=== PATIENT | male | born 1985 | race Caucasian/White ===

== ENCOUNTER 2020-12-06 10:34 | Emergency (ER) | payer MEDICAID, SELFPAY ==
[2020-12-06 10:44] VITALS: BP 133/80; PULSE 86; RESP 17; TEMP 36.9; O2SAT 98; BMI 35.6
--- NOTE | 2020-12-06 10:54 | HMH.EDUTC ---
[facility] [place] Clinical Impression: Abdominal pain Qualifiers: Abdominal location: unspecified location Qualified Code(s): R10.9 - Unspecified abdominal pain Disposition: Still a Patient Condition on Discharge: Good Referrals: Margarita Triplett [Primary Care Provider] - Time of Disposition: 11:09 Medical Decision Making - [place] Inquiry Pt receiving controlled substance: No [place] was queried for this patient: No Vital Signs: 12/06/20 10:44 Temperature 98.4 F Temperature Source Oral Pulse Rate [Right Brachial] 86 Respiratory Rate 17 Blood Pressure [Right Arm] 133/80 Blood Pressure Mean [Right Arm] 97 Blood Pressure Source [Right Arm] Automatic Cuff 02 Sat by Pulse Oximetry 98 Oxygen Delivery Method Room Air Medical Decision Narrative: Discussed with patient and patient was initially declining transfer to the Ed for further work up and evaluation, Spoke with patients PCP and she recommended transfer patient to the ED for CT and further evaluation, again spoke with patient and he is now agreeing for transfer to the ED spoke with staff and patient moved to the ED without complications room 10 [facility] [place] - General Stated complaint: vomiting, abd pain Time Seen by Provider: 12/06/20 10:54 Mode of Arrival: Family Vehicle Source of Information: Patient Limitations: No Limitations Description of Symptoms (Recalled from Triage Doc. by RN): Pt c/o pain in LUQ ABD with nausea and vomiting. HEENT Symptoms (Recalled from RN notes): No Resp Symptoms (Recalled from RN notes): No Skin Symptoms (Recalled from RN notes): No MS Symptoms (Recalled from RN notes): No Functional Status (Recalled from RN notes): na - History of Present Illness Provider Complaint: Patient states that about three days ago he started having pain in his left side of his abdomen States that then started having some vomiting and diarrhea States now the diarrhea has since stopped but still having left side abd pain and when the pain hits it makes him sick at his stomach States that pain is a 04/23 - Related Data Home Medications Medication Instructions Recorded Confirmed Ibuprofen [Ibuprofen 800mg 800 mg PO TIDP PRN 12/06/20 12/06/20 Tablet] Omeprazole [Omeprazole 40mg 40 mg PO DAILY 12/06/20 12/06/20 Capsule] Allergies Allergy/AdvReac Type Severity Reaction Status Date / Time No Known Allergies Allergy Verified 05/21/18 17:33 - Worker's Comp Is this a Worker's Comp case?: No H History - Hepatitis A Screen Drug use history?: No High risk sexual behaviors?: No History of sexually transmitted infection?: No Currently employed?: No Childcare worker?: No Do you have indoor plumbing?: Yes Do you have electricity?: Yes Attestation statement:: This patient has been screened for Hepatitis A risk factors. I have reviewed the patient's past medical history: Yes - Social History Smoking Status: Unknown if ever smoked Alcohol Intake: never ROS Obtained: Yes All systems reviewed & no additional complaints, Yes Systems reviewed as appropriate & no additional complaints - Gastrointestinal Gastrointestingal: Reports: system reviewed and no additional complaints, except as docu, abdominal pain, diarrhea, nausea, vomiting Comments: Reports left sided abdominal pain that started about 3 days ago then he had some vomiting and diarrhea but now diarrhea has stopped and he is still having left sided abdominal pain and vomiting Physical Exam - General General appearance: alert, in no apparent distress - Respiratory Respiratory exam: Present: normal lung sounds bilaterally. Absent: respiratory distress - Cardiovascular Cardiovascular exam: Present: regular rate, normal rhythm. Absent: JVD - Abdominal Exam Abdominal exam: Present: soft, tenderness (reports tenderness with palpation in left upper and left lower quad). Absent: distention Abdominal tenderness: Present: LUQ, LLQ, mild, moderate Comment: Report
--- NOTE | 2020-12-06 11:10 | PC.NURSE ---
report given to Lynda Eisenberg RN. pt transfered to ER per Nella Kothari APRN and pt's pcp.
[2020-12-06 11:12] VITALS: BP 147/86; PULSE 60; RESP 16; TEMP 36.6; O2SAT 96; BMI 36.0
--- NOTE | 2020-12-06 11:17 | CT_ITS ---
PROCEDURE: CT ABDOMEN PELVIS WO CON CLINICAL INDICATION: LUQ ABD PAIN Left upper quadrant pain and vomiting COMPARISON: No exams were available for comparison TECHNIQUE: Axial images obtained with sagittal and coronal reformats. All CT scans at the facility use one or more dose reduction, viz: automated exposure control, ma/kV adjustment per patient size (including targeted exams where dose is matched to indication, i.e. head), or iterative reconstruction technique. FINDINGS: LOWER THORAX: No acute finding ABDOMEN & PELVIS: Prior cholecystectomy. No focal liver lesion identified. There is mild gastric wall thickening. This is nonspecific and could be due to nondistention or gastritis. The spleen, adrenal glands, and pancreas have an unremarkable appearance. There is some bilateral renal excretion of contrast. No hydronephrosis. Renal calculi could be obscured due to the contrast. Unremarkable appendix. No intestinal obstruction or free air. There are few nondistended fluid-filled loops of small bowel in the lower abdomen. No pelvic mass or abnormal fluid collection. 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 IMPRESSION: Mild gastric wall thickening nonspecific but could be seen with gastritis. Nondistended fluid-filled loops of small bowel are noted and could be related to mild enteritis.. Dictated by: Jona De La Cruz MD 12/06/2020 12:55 Jona De La Cruz MD in [place] 12/06/2020 12:55
--- NOTE | 2020-12-06 11:20 | HMH.EDGENADL ---
ED Disposition Clinical Impression: Left sided abdominal pain Gastritis Qualifiers: Gastritis type: unspecified gastritis Chronicity: acute Gastritis bleeding: without bleeding Qualified Code(s): K29.00 - Acute gastritis without bleeding Disposition: Still a Patient Condition on Discharge: Fair Instructions: DI for Acute Abdominal Pain Additional Instructions: Do not take ibuprofen for 1 week. Continue taking Prilosec. Carafate as prescribed. Additional instructions for ABDOMINAL PAIN: See your physician as soon as possible for further evaluation. Return immediately if worsening abdominal pain, vomiting, shortness of breath, fever, vomiting of blood or abdominal distention. Prescriptions: Sucralfate [Carafate 1gm Tab] 1 gm PO ACHS #28 tab Transmission Status: Pending to [facility] Referrals: Margarita Triplett [Primary Care Provider] - - Critical Care Critical Care Time: No Attestation: On 12/06/20, the high probability of a clinically significant, sudden or life threatening deterioration of the following system(s) required my full and direct attention, intervention and personal management. The time I documented below is in addition to time spent performing reported procedures but includes the following listed in this critical care notation. Medical Decision Making - [place] Inquiry Pt receiving controlled substance: No Vital Signs: 12/06/20 10:44 12/06/20 11:12 Temperature 98.4 F 97.8 F Temperature Source Oral Oral Pulse Rate [Right Brachial] 86 60 Respiratory Rate 17 16 Blood Pressure [Right Arm] 133/80 147/86 H Blood Pressure Mean [Right Arm] 97 106 Blood Pressure Source [Right Arm] Automatic Cuff Blood Pressure Position [Right Arm] Sitting 02 Sat by Pulse Oximetry 98 96 Oxygen Delivery Method Room Air Room Air - Lab Data Lab Results 12/06/20 11:58: Sodium 141, Potassium 4.3, Chloride 104, Carbon Dioxide 28, Anion Gap 13.3, BUN 13, Creatinine 1.00, Estimated Creat Clear 158, Estimated GFR 86, Est GFR ( Amer) 103, Glucose 78, Calcium 9.3, Total Bilirubin 0.6, AST 57, ALT 86 H, Alkaline Phosphatase 68, Total Protein 7.6, Albumin 4.7, Globulin 2.9, Albumin/Globulin Ratio 1.6 12/06/20 11:58: Lipase 73 12/06/20 13:29: WBC 10.8, RBC 4.72, Hgb 14.6, Hct 43.0, MCV 91.1, MCH 30.8, MCHC 33.9, RDW 13.1, Plt Count 216, MPV 8.3, Neut % (Auto) 54.5, Lymph % (Auto) 31.8, [place] % (Auto) 6.9, Eos % (Auto) 6.1, Baso % (Auto) 0.6, Neut # (Auto) 5.9, Lymph # (Auto) 3.4, [place] # (Auto) 0.7, Eos # (Auto) 0.7 H, Baso # (Auto) 0.1 Result diagrams: 12/06/20 13:29 12/06/20 11:58 Orders (Tests/Meds): ED MEDICATIONS Generic Name Dose Route Start Last Admin Trade Name Freq PRN Reason Stop Dose Admin Sodium Chloride 10 ml 12/06/20 13:33 Sodium Chloride 0.9% 10ml Vial IV 01/05/21 13:32 NEEDED PRN dilute protonix Discontinued Medications Generic Name Dose Route Start Last Admin Trade Name Freq PRN Reason Stop Dose Admin Ondansetron HCl 4 mg 12/06/20 11:18 12/06/20 12:02 Ondansetron 4mg/2ml Vial IV 12/06/20 11:19 4 mg ONCE ONE Administration Pantoprazole Sodium 40 mg 12/06/20 13:33 Pantoprazole 40mg Vial IV 12/06/20 13:34 ONCE ONE ORDERS Category Date Time Status Urinalysis and Microscopic Stat Lab 12/06/20 11:16 Ordered - CT Data CT Scan: Abdomen, Pelvis Time Received: 13:[address] Reviewed: Yes: I have viewed the radiologist's interpretation Findings Narrative: PROCEDURE: CT ABDOMEN PELVIS WO CON CLINICAL INDICATION: LUQ ABD PAIN Left upper quadrant pain and vomiting COMPARISON: No exams were available for comparison TECHNIQUE: Axial images obtained with sagittal and coronal reformats. All CT scans at the facility use one or more dose reduction, viz: automated exposure control, ma/kV adjustment per patient size (including targeted exams where dose is matched to indication, i.e. head), or iterative reconstr
--- NOTE | 2020-12-06 11:29 | PC.NURSE ---
unsuccessful iv attempts x2. another staff member attempting at this time
--- NOTE | 2020-12-06 11:46 | PC.NURSE ---
v/s delayed due to attempting IV insertion.
[2020-12-06 12:15] LABS: Chloride 104 mmol/L (98-107); Potassium 4.3 mmoL/L (3.5-5.1); Sodium 141 mmol/L (136-145)
[2020-12-06 12:17] LABS: Lipase 73 U/L (23-300)
[2020-12-06 12:18] LABS: Alanine Aminotransferase 86 U/L (12-78); Albumin Level 4.7 g/dl (3.5-5.0); Albumin/Globulin Ratio 1.6 (1.1-1.8); Alkaline Phosphatase 68 U/L (38-126); Anion Gap 13.3 mEq/L (5-15); Aspartate Amino Transferase 57 U/L (17-59); Bilirubin,Total 0.6 mg/dl (0.2-1.3); Blood Urea Nitrogen 13 mg/dl (9-20); Calcium 9.3 mg/dl (8.4-10.2); Carbon Dioxide 28 mmol/L (22.0-30.0); Creatinine Clearance Estimated 158 mL/min (50-200); Estimated Glomerular Filt Rate 86 ml/min (>60); GFR (African American) 103 ML/MIN (>60); Globulin 2.9 g/dL (1.3-3.2); Glucose 78 mg/dl (74-100); Total Protein,Serum 7.6 g/dl (6.3-8.2)
--- NOTE | 2020-12-06 13:05 | PC.NURSE ---
Urine sample requested from pt. Pt advised he just peed earlier and doesn't need to urinate at this time. Advised him we only needed a small amount to let us know if he gets the urge.
--- NOTE | 2020-12-06 13:21 | PC.NURSE ---
V/s delayed due to numerous sticks for blood.
[2020-12-06 13:33] LABS: Basophils # 0.1 K/mm3 (0-0.2); Basophils % 0.6 % (0.1-2.0); Eosinophils # 0.7 K/mm3 (0.0-0.4); Eosinophils % 6.1 % (0.1-12.0); Hemoglobin 14.6 g/dL (14.1-18.0); Lymphocytes # 3.4 K/mm3 (0.7-4.5); Lymphocytes % 31.8 % (10-50); Mean Corpuscular HGB Conc 33.9 g/dL (31.8-35.4); Mean Corpuscular Hemoglobin 30.8 pg (27.0-31.2); Mean Corpuscular Volume 91.1 fl (80-94); Mean Platelet Volume 8.3 fl (7.4-10.4); Monocytes # 0.7 K/mm3 (0.1-1.0); Monocytes % 6.9 % (1.7-9.3); Neutrophils # 5.9 K/mm3 (1.8-7.8); Neutrophils % 54.5 % (37.0-80.0); Platelet Count 216 K/mm3 (142-424); Red Blood Count 4.72 M/mm3 (4.60-6.20); Red Cell Distribution Width 13.1 % (11.5-17.5); White Blood Count 10.8 K/mm3 (4.8-10.8)
[2020-12-06 14:07] VITALS: BP 132/74; PULSE 78; RESP 16; TEMP 36.6; O2SAT 98
== END 2020-12-06 14:08 | disposition still patient (30) ==
LOC: UTC 11:09 → ER 11:11
PROVIDERS: Emergency Provider Emergency Medicine; PCP Nurse Practitioner Family
DX: R10.12 Left upper quadrant pain (principal)
CPT/HCPCS: 36415; 74176; 80053; 83690; 85025; 96374; 96375; 99283; J2405